=== PATIENT | female | born 1945 ===

== ENCOUNTER 2021-05-07 08:38 | Outpatient (REF) | payer OTHER, SELFPAY | END 2021-05-07 08:39 | disposition home or self-care (01) | LOC: HO.HOSX 08:38 | PROVIDERS: Visit Provider Orthopaedic Surgery | DX: Z13.89 Encounter for screening for other disorder (principal) ==

== ENCOUNTER 2021-06-28 06:43 | Outpatient (REF) | payer OTHER, SELFPAY | END 2021-06-28 06:44 | disposition home or self-care (01) | LOC: HO.HOSX 06:43 | PROVIDERS: Visit Provider Physician Assistant | DX: Z13.89 Encounter for screening for other disorder (principal) ==

== ENCOUNTER 2021-10-10 07:44 | Outpatient (REF) | payer OTHER, SELFPAY ==
--- NOTE | ~2021-10-10 | XR_ITS ---
EXAMINATION: XR KNEE AP STANDING, BILATERAL XR KNEES, BILATERAL CLINICAL INFORMATION: Right knee pain. COMPARISON: None TECHNIQUE: AP bilateral knee standing, one view. Two views each knee. FINDINGS: BILATERAL KNEE AP STANDING: There is severe loss of medial compartment joint space at both knees with genu varum deformities, more on the right side. No bony erosive changes seen. There is no loose bodies. There is diffuse osteopenia. RIGHT KNEE: There is severe loss of patellofemoral compartment joint space with periarticular spurring. There is mild suprapatellar joint effusion. No loose bodies or fracture seen. LEFT KNEE: There is moderate loss of tricompartment joint space with periarticular spurring. No loose body seen. Suspect mild joint effusion. 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 RIGHT KNEE: Severe degenerative changes patellofemoral compartment of right knee with mild joint effusion. LEFT KNEE: Moderate degenerative changes patellofemoral compartment of left knee without joint effusion or loose bodies.
--- NOTE | ~2021-10-10 | XR_ITS ---
EXAMINATION: XR KNEE AP STANDING, BILATERAL XR KNEES, BILATERAL CLINICAL INFORMATION: Right knee pain. COMPARISON: None TECHNIQUE: AP bilateral knee standing, one view. Two views each knee. FINDINGS: BILATERAL KNEE AP STANDING: There is severe loss of medial compartment joint space at both knees with genu varum deformities, more on the right side. No bony erosive changes seen. There is no loose bodies. There is diffuse osteopenia. RIGHT KNEE: There is severe loss of patellofemoral compartment joint space with periarticular spurring. There is mild suprapatellar joint effusion. No loose bodies or fracture seen. LEFT KNEE: There is moderate loss of tricompartment joint space with periarticular spurring. No loose body seen. Suspect mild joint effusion. 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 RIGHT KNEE: Severe degenerative changes patellofemoral compartment of right knee with mild joint effusion. LEFT KNEE: Moderate degenerative changes patellofemoral compartment of left knee without joint effusion or loose bodies.
--- NOTE | ~2021-10-10 | XR_ITS ---
EXAMINATION: XR KNEE AP STANDING, BILATERAL XR KNEES, BILATERAL CLINICAL INFORMATION: Right knee pain. COMPARISON: None TECHNIQUE: AP bilateral knee standing, one view. Two views each knee. FINDINGS: BILATERAL KNEE AP STANDING: There is severe loss of medial compartment joint space at both knees with genu varum deformities, more on the right side. No bony erosive changes seen. There is no loose bodies. There is diffuse osteopenia. RIGHT KNEE: There is severe loss of patellofemoral compartment joint space with periarticular spurring. There is mild suprapatellar joint effusion. No loose bodies or fracture seen. LEFT KNEE: There is moderate loss of tricompartment joint space with periarticular spurring. No loose body seen. Suspect mild joint effusion. 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 RIGHT KNEE: Severe degenerative changes patellofemoral compartment of right knee with mild joint effusion. LEFT KNEE: Moderate degenerative changes patellofemoral compartment of left knee without joint effusion or loose bodies.
== END 2021-10-10 07:45 | disposition home or self-care (01) ==
LOC: HO.HOSX 07:44
PROVIDERS: Visit Provider Physician Assistant
DX: M17.0 Bilateral primary osteoarthritis of knee (principal)
CPT/HCPCS: 73560; 73565; 99202

== ENCOUNTER → 2021-10-25 09:27 | Outpatient (BNVA) | payer OTHER, SELFPAY | PROVIDERS: PCP Physician Assistant; Visit Provider Orthopaedic Surgery | DX: Z01.818 Encounter for other preprocedural examination (principal); M17.0 Bilateral primary osteoarthritis of knee | CPT/HCPCS: 99212 ==

== ENCOUNTER → 2022-07-04 09:31 | Outpatient (BNVA) | payer OTHER, SELFPAY | PROVIDERS: PCP Physician Assistant; Visit Provider Orthopaedic Surgery | DX: M17.0 Bilateral primary osteoarthritis of knee (principal) | CPT/HCPCS: 99212 ==